=== PATIENT | female | born 1975 | race Caucasian/White ===

== ENCOUNTER 2023-11-25 12:07 | Outpatient (CLI) | payer OTHER, SELFPAY ==
--- NOTE | ~2023-11-25 | CT_ITS ---
EXAMINATION: CT diagnostic chest wo con DATE: 11/25/2023 12:47 INDICATION: Cough and shortness of breath TECHNIQUE: Computed tomography (CT) of the chest was performed without intravenous contrast. The dose -length product was 243.73 mGy-cm. Automated exposure control and iterative reconstruction technique were employed. COMPARISON: None FINDINGS: Heart size normal. No significant pleural or pericardial effusion. No thoracic lymphadenopa thy. Upper abdomen is unremarkable. No endobronchial lesions. No pneumothorax. No focal airspace dise ase. No suspicious pulmonary nodules or masses. No acute osseous abnormality. IMPRESSION: 1. No acute cardiopulmonary disease. Reviewed, dictated and finalized at location [facility]
[2023-11-25 12:35] LABS: Basophils Absolute Auto 0.05 K/mm3 (0.00-0.10); Basophils Percent Auto 0.7 % (0.0-1.0); Eosinophils Absolute Auto 0.22 K/mm3 (0.02-0.50); Eosinophils Percent Auto 2.9 % (1.0-6.0); Hemoglobin 13.7 g/dL (12.0-15.0); Immature Granulocyte Absolute 0.04 K/mm3 (0.00-0.00); Immature Granulocyte Percent A 0.5 % (0.0-0.0); Lymphocytes Percent Auto 27.6 % (18.0-42.0); Mean Corpuscular HGB Conc 35.1 g/dL (32.0-36.0); Mean Corpuscular Hemoglobin 30.3 pg (27.0-31.0); Mean Corpuscular Volume 86.3 fL (78.0-102.0); Mean Platelet Volume 9.7 fl (9.2-11.8); Monocytes Absolute Auto 0.39 K/mm3 (0.10-0.90); Monocytes Percent Auto 5.1 % (2.0-11.0); Neutrophils Absolute Auto 4.8 K/mm3 (1.7-7.2); Neutrophils Percent Auto 63.2 % (50.0-70.0); Platelet Count Result 318 K/mm3 (150-420); Red Blood Count 4.52 M/mm3 (4.20-5.40); Red Cell Distribution Width 11.9 % (11.6-14.4); White Blood Count 7.6 K/mm3 (4.8-10.8)
[2023-11-25 13:04] LABS: Alanine Aminotransferase 40 U/L (14-59); Albumin Level 3.6 g/dL (3.4-5.0); Alkaline Phosphatase 58 U/L (46-116); Anion Gap 8 mmol/L (8-16); Aspartate Amino Transferase 24 U/L (15-37); Bilirubin,Total 0.3 mg/dL (0.00-1.00); Blood Urea Nitrogen 13 mg/dL (7-18); Calcium 9.1 mg/dL (8.5-10.1); Carbon Dioxide 27 mmol/L (21-32); Chloride 102 mmol/L (98-108); Estimated Glomerular Filt Rate > 60; Glucose 107 mg/dL (70-99); Osmolality Calculated 284 mOsm/kg (285-295); Potassium 4.4 mmol/L (3.5-5.1); Sodium 137 mmol/L (136-145)
[2023-11-27 22:57] LABS: Adenovirus DNA Not Detected (Not Detected); Chlamydophila pneumoniae Not Detected (Not Detected); Coronavirus 229E Not Detected (Not Detected); Coronavirus HKU1 Not Detected (Not Detected); Coronavirus NL63 Not Detected (Not Detected); Coronavirus OC43 Not Detected (Not Detected); Human Metapneumovirus Not Detected (Not Detected); Human Parainfluenza Virus 1 Not Detected (Not Detected); Human Parainfluenza Virus 2 Not Detected (Not Detected); Human Parainfluenza Virus 3 Not Detected (Not Detected); Human Parainfluenza Virus 4 Not Detected (Not Detected); Human RSV B Not Detected (Not Detected); Influenza A Not Detected (Not Detected); Influenza B Not Detected (Not Detected); Mycoplasma pneumoniae Not Detected (Not Detected); Rhinovirus/Enterovirus Not Detected (Not Detected)
== END 2023-11-25 12:08 | disposition home or self-care (01) ==
LOC: CHSIMG 12:15
PROVIDERS: PCP Family Medicine; Visit Provider Registered Nurse
DX: R05.9 Cough, unspecified (principal); J20.9 Acute bronchitis, unspecified
CPT/HCPCS: 36415; 71250; 80053; 85025; 87633

== ENCOUNTER 2025-10-15 16:20 | Emergency (ER) | payer SELFPAY ==
[2025-10-15] VITALS (16 sets, daily range): BP systolic 120–141; BP diastolic 66–86; PULSE 79–97; RESP 17–21; TEMP 36.3–36.5; O2SAT 96–99
--- NOTE | ~2025-10-15 | CT_ITS ---
EXAMINATION: CT cervical spine wo con COMPARISON: None HISTORY: Fall, anterior head injury/ headache/ nausea/ cervical pain TECHNIQUE: Axial images were obtained through the spine without IV contrast. Coronal, sagittal reconstruction images were obtained from the axial views. CT scan performed using dose optimization techniques including the following automated exposure control; adjustment of mA and/or kV; use of iterative reconstruction technique. Automatic exposure control was used to reduce radiation dose. Permanent radiation dose record is archived to PACS. FINDINGS: The vertebral heights are intact. No fracture or subluxation. Moderate loss of disc height at C5-6 and C6-7 with moderate canal and foraminal stenosis. Soft tissues unremarkable. Impression: No acute abnormality. Reviewed, dictated and finalized at location P. FINISH MILL OPERATOR Impression: No acute abnormality.
--- NOTE | ~2025-10-15 | XR_ITS ---
EXAMINATION: XR knee LT 3V, 10/15/2025 17:16 ACCIDENT INVESTIGATOR HISTORY: Fall, Lt. knee pain COMPARISON: No comparisons available. Findings: No acute fracture or malalignment. No significant degenerative changes. Soft tissues unremarkable. Impression: No acute fracture or malalignment. Reviewed, dictated and finalized at location P. DENT INVESTIGATOR Impression: No acute fracture or malalignment.
--- NOTE | ~2025-10-15 | CT_ITS ---
EXAMINATION: CT brain wo con COMPARISON: None HISTORY: Fall, anterior head injury/ headache/ nausea TECHNIQUE: Axial images were obtained through the brain without IV contrast. CT scan performed using dose optimization techniques including the following automated exposure control; adjustment of mA and/or kV; use of iterative reconstruction technique. Automatic exposure control was used to reduce radiation dose. Permanent radiation dose record is archived to PACS. FINDINGS: No acute infarct or parenchymal hemorrhage. No abnormal mass or mass effect. No midline shift. No extra-axial fluid collections. No hydrocephalus. . Mastoid air cells unremarkable. Sinuses and orbits unremarkable. No acute fracture. No significant facial or scalp soft tissue swelling evident. No radiopaque foreign body is seen. Impression: 1.No acute intracranial abnormality. Reviewed, dictated and finalized at location [facility]. [facility] NAVIGATOR Impression: 1.No acute intracranial abnormality.
--- NOTE | ~2025-10-15 | XR_ITS ---
EXAMINATION: XR shoulder LT min 2V, 10/15/2025 17:16 BANKING PIN ADJUSTER HISTORY: Fall, Lt. shoulder pain COMPARISON: No comparisons available. Findings: No acute fracture or malalignment. No significant degenerative changes. Soft tissues unremarkable. Impression: No acute fracture or malalignment. Reviewed, dictated and finalized at location P. ING PIN ADJUSTER Impression: No acute fracture or malalignment.
--- NOTE | ~2025-10-15 | CT_ITS ---
EXAMINATION: CT pelvis wo con COMPARISON: None HISTORY: Fall, Lt. side pelvic/hip pain/ limited ROM TECHNIQUE: Axial images were obtained without IV contrast. Sagittal, coronal reconstruction images were obtained from the axial views. CT scan performed using dose optimization techniques including the following automated exposure control; adjustment of mA and/or kV; use of iterative reconstruction technique. Automatic exposure control was used to reduce radiation dose. Permanent radiation dose record is archived to PACS. FINDINGS: Postsurgical changes within the visualized lumbar spine. There is a nondisplaced fracture of the left sacral alar. There is a nondisplaced fracture of the left superior pubic ramus at its junction with the symphysis pubis. There is a comminuted displaced fracture of the left inferior pubic ramus at its junction with the symphysis pubis with a nondisplaced fracture of the posterior left inferior pubic ramus. No dislocation. No osteonecrosis. Minimal degenerative changes of the sacroiliac and acetabular femoral joints. No joint effusion is identified. The intrapelvic soft tissues demonstrate posttraumatic soft tissue changes adjacent to the fracture sites otherwise unremarkable. There is no subcutaneous fluid collection or intramuscular hemorrhage identified. IMPRESSION: Fractures detailed above Reviewed, dictated and finalized at location P. TER DRIVER IMPRESSION: Fractures detailed above
--- NOTE | ~2025-10-15 | CT_ITS ---
EXAMINATION: CT lumbar spine wo con COMPARISON: None HISTORY: Fall, anterior head injury/ headache/ nausea/ lumbar pain TECHNIQUE: Axial images were obtained through the spine without IV contrast. Coronal, sagittal reconstruction images were obtained from the axial views. CT scan performed using dose optimization techniques including the following automated exposure control; adjustment of mA and/or kV; use of iterative reconstruction technique. Automatic exposure control was used to reduce radiation dose. Permanent radiation dose record is archived to PACS. FINDINGS: There is grade 1 retrolisthesis of L4 on L5, no fracture is identified. Bilateral pedicle screws and rods fixate L5 and S1 with disc prostheses, the hardware is intact with no lucency around the screws. Moderate loss of disc height at L4-5 and moderate canal and foraminal stenosis. Soft tissues unremarkable. Impression: No acute fracture Reviewed, dictated and finalized at location P. OWS ADMINISTRATOR Impression: No acute fracture
--- NOTE | 2025-10-15 16:39 | ED_ITS ---
HPI - General Adult General Chief complaint: Fall Stated complaint: fall from horse Time Seen by Provider: 10/15/25 16:27 History of Present Illness HPI narrative: Veronica is a 50F with a PMH of PTSD/anxiety/depression presented to the ED by private vehicle after a fall from a horse. She fell onto her left side and hit her head, shoulder and hip. No LOC or vomiting. She has a lot of pain in her left shoulder, low back and left hip and knee. She is A&Ox3. Related Data Allergies Allergy/AdvReac Type Severity Reaction Status Date / Time Penicillins Allergy Intermediate Hives Verified 10/15/25 16:32 Review of Systems Review of Systems: All systems reviewed & are unremarkable except as noted in HPI and below Exam Const: General: cooperative, well developed, alert, awake and Physically active Orientation/consciousness: oriented to person, oriented to place and oriented to time HENMT: Head: normal to inspection, normocephalic and atraumatic Ears: hearing grossly normal bilaterally and external ears normal Face/Nose/Sinus: Normal external nose present Eyes: General: appearance normal, both eyes and all related structures Periorbital: periorbital findings normal Sclera: sclerae normal Pupils: Equal, round and reactive pupils present Neck: Neck: normal visual inspection Chest: Chest palpation & inspection: normal inspection of the chest Resp: Effort & Inspection: normal respiratory effort, able to speak in c omplete sentences and no respiratory distress Auscultation: clear to auscultation bilaterally Cardio: Jugular venous distension: no JVD Rate: tachycardic Rhythm: regular rhythm GI: Inspection: normal to inspection GI Palp: Yes Soft to palpation Auscultation: normal bowel sounds Back/Spine/Pelvis: Other: TTP midline over the lumbar spine and sacrum. Left pelvis/hip was very TTP Skin: General skin exam: normal color and no rashes or lesions noted Neuro: General: oriented to person, oriented to place and oriented to time Cranial nerves: Yes Equal, round and reactive pupils present Extrem: General: normal to inspection Other: Right shoulder was very TTP Course Course Emergency Course: Placed C-coller. Ordered morphine and imaging. EXAMINATION: CT brain wo con Impression: 1.No acute intracranial abnormality. EXAMINATION: CT cervical spine wo con Impression: No acute abnormality. EXAMINATION: CT lumbar spine wo con Impression: No acute fracture EXAMINATION: CT pelvis wo con FINDINGS: Postsurgical changes within the visualized lumbar spine. There is a nondisplaced fracture of the left sacral alar. There is a nondisplaced fracture of the left superior pubic ramus at its junction with the symphysis pubis. There is a comminuted displaced fracture of the left inferior pubic ramus at its junction with the symphysis pubis with a nondisplaced fracture of the posterior left inferior pubic ramus. No dislocation. No osteonecrosis. Minimal degenerative changes of the sacroiliac and acetabular femoral joints. No joint effusion is identified. The intrapelvic soft tissues demonstrate posttraumatic soft tissue changes adjacent to the fracture sites otherwise unremarkable. There is no subcutaneous fluid collection or intramuscular hemorrhage identified. IMPRESSION: Fractures detailed above EXAMINATION: XR shoulder LT min 2V, 10/15/2025 17:16 STRETCHER AND DRIER Impression: No acute fracture or malalignment. EXAMINATION: XR knee LT 3V, 10/15/2025 17:16 STRETCHER AND DRIER Impression: No acute fracture or malalignment. Given additional morphine for continued pain. I spoke with Dr. Yepez of trauma services at [facility] who recommended ED to ED transfer. Vital Signs Vital signs: Vital Signs Temperature 97.3 F L 10/15/25 16:20 Pulse Rate 94 10/15/25 16:20 Respiratory Rate 20 10/15/25 16:20 Blood Pressure 141/72 H 10/15/25 16:20 Pulse Oximetry 97 10/15/25 16:20 Oxygen Delivery Room Air 10/15/25 16:20 Temperature 97.3 F L 10/15/25 16:20 Pulse Rate 94 10/15/25 16:20 Respiratory Rate 20 10/15/25 16:20 Blood Pressure 141/72 H 10/15/25 16:20 Pulse Oximetry 99 10/15/25 16:20 Oxygen Delivery Room Air 10/15/25 16:20 Medical Decision Making Vital Signs Vital Signs: Vital Signs Temperature 97.3 F L 10/15/25 16:20 Pulse Rate 94 10/15/25 16:20 Respiratory Rate 20 10/15/25 16:20 Blood Pressure 141/72 H 10/15/25 16:20 Pulse Oximetry 97 10/15/25 16:20 Oxygen Delivery Room Air 10/15/25 16:20 Temperature 97.3 F L 10/15/25 16:20 Pulse Rate 94 10/15/25 16:20 Respiratory Rate 20 10/15/25 16:20 Blood Pressure 141/72 H 10/15/25 16:20 Pulse Oximetry 99 10/15/25 16:20 Oxygen Delivery Room Air 10/15/25 16:20 Discharge Plan Discharge Clinical Impression: Closed pelvic fracture Patient Disposition: Acute Care Hospital Condition: Serious Patient Language: Montserratian Follow-up/Referrals: Rahel,MD Duy [Primary Care Provider, Family Practice]
[2025-10-15] MEDS: MORPHINE SULFATE (*CRX) 4 MG/ML INJ IM (16:46)
[2025-10-15] MEDS: MORPHINE SULFATE (*CRX) 4 MG/ML INJ IV PUSH (18:04)
[2025-10-15 18:34] LABS: Hematocrit 35.1 % (35.0-49.0); Hemoglobin 12.2 g/dL (12.0-15.0); Immature Granulocyte Percent A 0.7 % (0.0-0.0); Lymphocytes Absolute Auto 1.59 K/mm3 (1.10-4.50); Mean Corpuscular HGB Conc 34.8 g/dL (32-36); Mean Corpuscular Hemoglobin 29.3 pg (27.0-31.0); Mean Corpuscular Volume 84.2 fL (78.0-102.0); Nucleated Red Blood Cells Absolute Auto 0.00 K/mm3 (0.00-0.00); Nucleated Red Blood Cells Perc 0.0 % (0-0.0); Platelet Count Result 326 K/mm3 (150-420); Red Blood Count 4.17 M/mm3 (4.20-5.40); White Blood Count 15.0 K/mm3 (4.8-10.8)
[2025-10-15 18:45] LABS: Alanine Aminotransferase 40 U/L (6-35); Albumin Level 4.7 g/dL (3.5-5.1); Alkaline Phosphatase 107 U/L (38-126); Anion Gap 9 mmol/L (4-12); Aspartate Amino Transferase 43 U/L (14-36); Blood Urea Nitrogen 14 mg/dL (7-17); Calcium 9.0 mg/dL (8.4-10.2); Carbon Dioxide 24 mmol/L (22-30); Chloride 108 mmol/L (98-107); Estimated CRCL calculation 62 ml/min; Estimated Glomerular Filt Rate 57; Glucose 104 mg/dL (65-110); Osmolality Calculated 292 mOsm/kg (285-295); Potassium 3.8 mmol/L (3.4-5.0); Sodium 141 mmol/L (137-145); Total Protein 7.6 g/dL (6.3-8.2)
[2025-10-18 13:47] LABS: Bilirubin,Total 0.4 mg/dL (0.2-1.3)
== END 2025-10-15 18:49 | disposition short-term general hospital (02) ==
PROVIDERS: Emergency Provider Family Medicine; PCP Family Medicine
DX: S32.592A Other specified fracture of left pubis, initial encounter for closed fracture (principal); V80.010A Animal-rider injured by fall from or being thrown from horse in noncollision accident, initial encounter
CPT/HCPCS: 36415; 70450; 72125; 72131; 72192; 73030; 73562; 80053; 85025; 96372; 96374; 99285; J2270; L0150